=== PATIENT | female | born 2000 | race Caucasian/White ===

== ENCOUNTER → 2023-02-09 | Outpatient (CLI) | payer SELFPAY ==
[2023-02-12 20:08] LABS: QUANTIFERON MITOGEN VALUE >10.00 IU/mL (.); QUANTIFERON NIL VALUE 0.63 IU/mL (.); QUANTIFERON TB1 AG VALUE 0.24 IU/mL (.); QUANTIFERON TB2 AG VALUE 0.22 IU/mL (.); QUANTIFERON-TB GOLD PLUS Negative (Negative)
== END ==
LOC: LAB SHORT 18:27 → LAB 18:27
PROVIDERS: Family Medicine
DX: Z11.1 Encounter for screening for respiratory tuberculosis (principal)
CPT/HCPCS: 86480